=== PATIENT | female | born 1940 | race Caucasian/White ===

== ENCOUNTER → 2020-11-05 12:50 | Outpatient (BNVA) | payer MEDICARE, OTHER, SELFPAY | PROVIDERS: Family Provider Internal Medicine; PCP Internal Medicine; Visit Provider Nurse Practitioner Family | DX: N39.0 Urinary tract infection, site not specified (principal) | CPT/HCPCS: 81003 ==

== ENCOUNTER 2021-09-21 07:52 | Emergency (ER) | payer MEDICARE, OTHER, SELFPAY ==
[2021-09-21 08:32] VITALS: BP 195/85; PULSE 74; RESP 16; O2SAT 98; BMI 30.2
[2021-09-21] MEDS: hyDRALAzine 20 mg/mL INJ 1 mL 5 MG IVP (08:48)
[2021-09-21] MEDS: dexamethasone 10 mg/mL INJ IVP (08:49)
[2021-09-21] MEDS: diphenhydrAMINE 50 mg/mL SDV 1mL 25 MG IVP (08:49)
--- NOTE | 2021-09-21 08:49 | ED_ITS ---
HPI - Allergic Reaction General: Chief complaint: Allergic Reaction Stated complaint: allergic rxn Time Seen by Provider: 09/21/21 07:53 Source: patient Mode of arrival: ambulatory Limitations: no limitations History of Present Illness: HPI narrative: 81-year-old female who presents emergency room with swelling in her upper lip. She had some hives on her trunk and her legs last night. She also had a short episode of back pain for which she took a nitro its resolved and she did not had any recurrence this was several hours ago. She does take amlodipine benazepril 10/01 she takes it at night before she goes to bed she has been on it for quite some time is not previously had any difficulty with it. Not having difficulty with speech or swallowing at this time no shortness of breath. MD complaint: allergic reaction Onset (ago): hour(s) Associated symptoms: Reports lip swelling; Deny abdominal pain, difficulty breathing, dysphagia, dizziness, facial swelling, hoarseness, itching, nausea, rash, tongue swelling or vomiting Severity: moderate Treatment prior to arrival: none Previous Allergic Reaction History: none Review of Systems Const: Denies: fever(s), chills, body aches, change in appetite, fatigue or malaise ENMT: Denies: hoarseness Card: Denies: chest pain, edema, dyspnea on exertion or orthopnea Resp: Denies: dyspnea, productive cough or non-productive cough GI: Denies: abdominal pain, nausea, vomiting or dysphagia : Denies: flank pain, difficulty voiding, dysuria, urinary frequency or urinary urgency Skin/Breast: Denies: rash or pruritus Neuro: Denies: dizziness All/Imm: Denies: tongue swelling or facial swelling PFSH ED PFSH: Medical History Carotid stenosis Dyslipidemia HTN (hypertension) Myocardial infarction Recurrent UTI Surgical History History of PTCA Family History Mother CAD (coronary artery disease) Father CAD (coronary artery disease) Social History Smoking and tobacco status: never smoked Alcohol intake: never Adopted: No Caregiver/support person: No Lives independently: No Household members: spouse Marital status: Current occupational status: retired Physical Exam Const: GENERAL APPEARANCE: cooperative and comfortable ORIENTATION/CONS CIOUSNESS: Yes awake, Yes oriented to person, Yes oriented to place and Yes oriented to time HENMT: COMMON NORMALS: normocephalic, atraumatic, hearing grossly normal bilaterally, external ears normal, EAC's normal, TM's normal bilaterally, Normal nasal mucous membranes and turbinates present, moist oral mucous membranes and oropharynx normal HEAD & SCALP: normocephalic and atraumatic NOSE: Normal nasal mucous membranes and turbinates present EXTERNAL EAR: Yes external ears normal EXTERNAL AUDITORY CANAL: EAC's normal TYMPANIC MEMBRANE: TM's normal bilaterally MOUTH: tongue normal and lip abnormal (Swelling of the upper lip) THROAT: posterior oropharynx normal Eye: COMMON NORMALS: Equal, round and reactive pupils present, EOMs intact bilaterally, conjunctivae normal and no scleral icterus CONJUNCTIVA: Yes conjunctivae normal PUPIL: Yes Equal, round and reactive pupils present Neck/C-Spine: COMMON NORMALS: full ROM, no lymphadenopathy, supple and no JVD Resp: COMMON NORMALS: normal respiratory effort, No retractions, No use of accessory muscles and clear to auscultation bilaterally AUSCULTATION: clear to auscultation bilaterally Cardio: COMMON NORMALS: no JVD, regular rate, regular rhythm and No murmurs present (Cardio) RATE: regular rate RHYTHM: regular rhythm GI: COMMON NORMALS: Soft to palpation and No hepatosplenomegaly present AUSCULTATION: Yes normoactive bowel sounds PALPATION: Yes Soft to palpation, No Tenderness to palpation present (GI), No Guarding due to palpation present (GI) and Yes No hepatosplenomegaly present Extremity: COMMON NORMALS: normal to inspection, capillary refill normal, no clubbing, cyanosis or edema, no calf tenderness and no pedal edema Neuro: SENSORIUM/ORIENTATION: Yes oriented to person, Yes oriented to place and Yes oriented to time Skin: COMMON NORMALS: no rashes or lesions noted GENERAL SKIN EXAM: no rashes or lesions noted Course Vital Signs: Vital signs: Vital Signs Pulse Rate 60 09/21/21 10:44 Respiratory Rate 17 09/21/21 10:44 Blood Pressure 158/65 09/21/21 10:44 Pulse Oximetry 100 09/21/21 10:44 MDM - Allergic Reaction Medical Decision Making No acute ST changes on EKG symptoms are improving the swelling she never had any difficulties stridor or swallowing. We can discharge her home. The concern is which of her medications might cause the she is on amlodipine benazepril and both of these medications may have triggered something like this advised her to stop it completely and instead we will put her on isosorbide mononitrate and the low-dose metoprolol succinate to replace her atenolol. Follow-up with your primary care doctor within the week to reevaluate blood pressure. Medical Records I reviewed the patient's medical records. Lab Data I reviewed the patient's lab results. : 09/21/21 08:40 Laboratory Results Sodium 133 mmol/L (136-145) L 09/21/21 08:40 Potassium 4.3 mmol/L (3.5-5.1) 09/21/21 08:40 Chloride 98 mmol/L (98-107) 09/21/21 08:40 Carbon Dioxide 21 mmol/L (22-29) L 09/21/21 08:40 Anion Gap 18.3 (5-19) 09/21/21 08:40 BUN 24 mg/dL (8-23) H 09/21/21 08:40 Creatinine 0.9 mg/dL (0.5-0.9) 09/21/21 08:40 GFR Calculation Not Reportable 09/21/21 08:40 Glucose 114 mg/dL (65-115) 09/21/21 08:40 Calculated Osmolality 281 mOsm/kg (285-295) L 09/21/21 08:40 Calcium 10.0 mg/dL (8.5-10.5) 09/21/21 08:40 Troponin T Gen 5 ng/L 9 ng/L (0-10) 09/21/21 08:40 Discharge Plan Discharge Patient Disposition: Home Clinical Impression: Allergic reaction, Angioedema, HTN (hypertension) Condition: Stable Prescriptions: New isosorbide mononitrate 30 mg tablet extended release 24 hr 30 mg PO DAILY Qty: 14 0RF Toprol XL 25 mg tablet extended release 24 hr 25 mg PO DAILY Qty: 14 0RF Discontinued amlodipine-benazepril 5-20 mg capsule 1 cap PO DAILY 90 Days Qty: 90 3RF atenolol 50 mg tablet 50 mg PO DAILY 90 Days Qty: 90 3RF No Action nitroglycerin [Nitrostat] 0.4 mg tablet, sublingual 0.4 mg SUBLINGUAL Q5M PRN0RF Rx Instructions: do not exceed 3 doses per episode aspirin [Adult Low Dose Aspirin] 81 mg tablet,delayed release (DR/EC) 81 mg PO DAILY 0RF levothyroxine 112 mcg capsule 112 mcg PO DAILY 0RF sulfamethoxazole-trimethoprim 800-160 mg tablet 1 tab PO BID Qty: 28 3RF atorvastatin 80 mg tablet 40 mg PO DAILY 0RF Discharge Orders: Discharge ED (Routine); Ordered 09/21/21 Ordered By: Juan Garcia Referrals: Saul Waite DO [Primary Care Provider] - Discharge Diet: Usual diet Discharge Activity: Resume usual activity Patient Instructions: Opioid Safety Activity Restrictions/Additional Instructions: Follow-up with your primary care doctor within the week. Please make note of the medication changes that were advised today. They are listed on your discharge medication list. Coding Level of Care Code ED Transportation Economics Teacher for Kari Fwd Exam Comprehensive
[2021-09-21 08:57] VITALS: BP 181/75; PULSE 64; RESP 18; O2SAT 100
--- NOTE | 2021-09-21 09:52 | ECG_ITS ---
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 Measurements Intervals [place] Rate: 60 P: 72 SC: 220 QRS: 43 QRSD: 95 T: 88 QT: 458 QTc: 458 Interpretive Statements SINUS RHYTHM WITH FIRST DEGREE AV BLOCK No previous ECG available for comparison Electronically Signed On 09-21-2021 17:26:53 CDT by Og Lyle M.D. [id number]
[2021-09-21 10:12] LABS: Anion Gap 18.3 (5-19); Blood Urea Nitrogen 24 mg/dL (8-23); Carbon Dioxide 21 mmol/L (22-29); Chloride 98 mmol/L (98-107); Glucose 114 mg/dL (65-115); Osmolality Calculated 281 mOsm/kg (285-295); Potassium 4.3 mmol/L (3.5-5.1); Sodium 133 mmol/L (136-145); Troponin T (5th) Once 9 ng/L (0-10)
[2021-09-21 10:44] VITALS: BP 158/65; PULSE 60; RESP 17; O2SAT 100
== END 2021-09-21 10:55 | disposition home or self-care (01) ==
PROVIDERS: Emergency Provider Family Medicine; PCP Internal Medicine
DX: T78.40XA Allergy, unspecified, initial encounter (principal); T78.3XXA Angioneurotic edema, initial encounter; I10 Essential (primary) hypertension; X58.XXXA Exposure to other specified factors, initial encounter
CPT/HCPCS: 80048; 84484; 93005; 96374; 96375; 99284; J0360; J1100; J1200

== ENCOUNTER → 2021-11-08 15:10 | Outpatient (BNVA) | payer MEDICARE, OTHER, SELFPAY | PROVIDERS: PCP Internal Medicine; Visit Provider Internal Medicine | DX: I25.10 Atherosclerotic heart disease of native coronary artery without angina pectoris (principal); E78.5 Hyperlipidemia, unspecified; I10 Essential (primary) hypertension; I65.29 Occlusion and stenosis of unspecified carotid artery; Z98.61 Coronary angioplasty status | CPT/HCPCS: 99213; 99214 ==

== ENCOUNTER → 2021-11-09 12:23 | Outpatient (BNVA) | payer MEDICARE, OTHER, SELFPAY | PROVIDERS: PCP Internal Medicine; Visit Provider Urology | DX: Z87.440 Personal history of urinary (tract) infections (principal) | CPT/HCPCS: 81003; 99213 ==

== ENCOUNTER → 2022-09-05 11:09 | Outpatient (BNVA) | payer MEDICARE, OTHER, SELFPAY | PROVIDERS: PCP Internal Medicine; Visit Provider Internal Medicine Cardiovascular Disease | DX: I65.29 Occlusion and stenosis of unspecified carotid artery (principal); I10 Essential (primary) hypertension; E78.5 Hyperlipidemia, unspecified; Z98.61 Coronary angioplasty status; R53.83 Other fatigue; R06.02 Shortness of breath; I25.2 Old myocardial infarction | CPT/HCPCS: 99213 ==

== ENCOUNTER 2022-09-26 12:40 | Outpatient (CLI) | payer MEDICARE, OTHER, SELFPAY ==
--- NOTE | 2022-09-26 12:45 | USCV_ITS ---
Sonam Guerrero Age: 82 Gender: F : 1940 Exam Date: 09/26/2022 12:52 Ordering Phys: Jasmeet Jacobs MD ([email or web address]) Technologist: GILLIAN [place] [facility] [place]: fatigue BP: 152 / 71 HR: 60 Rhythm: Sinus Technical Quality: Adequate MEASUREMENTS (Male / Female) Normal Values 2D ECHO LV Diastolic Diameter PLAX 4.6 cm 4.2 - 5.9 / 3.9 - 5.3 cm LV Systolic Diameter PLAX 3.8 cm LV Chamber Size 4.8 cm IVS Diastolic Thickness 0.8 cm 0.6 - 1.0 / 0.6 - 0.9 cm IVS Systolic Thickness 1.7 cm LVPW Diastolic Thickness 0.7 cm 0.6 - 1.0 / 0.6 - 0.9 cm LVPW Systolic Thickness 1.7 cm LVOT Diameter 2.0 cm LV Ejection Fraction 2D Teich 31.1 % LV Ejection Fraction MOD 2C 64.6 % LV Ejection Fraction 2C AL 64.3 % LA Diameter 4.7 cm LA Width 4.1 cm LA Height 5.6 cm RA Width 3.0 cm RA Height 4.9 cm Aorta at Sinotubular Diameter 2.3 cm IVC Diameter 1.3 cm M-MODE Aortic Annulus Diameter 3.1 cm LA Ao Ratio MM 1.6 MV E Point Septal Separation 0.7 cm DOPPLER AV Peak Velocity 136.0 cm/s LVOT Peak Velocity 88.0 cm/s AV Area Cont Eq vti 1.9 cm squared AV Area Cont Eq pk 2.1 cm squared MV Peak Velocity 120.0 cm/s MV Area PHT 3.3 cm squared Mitral E to A Ratio 1.4 MV E' Velocity 54.0 cm/s Mitral E to MV E' Ratio 10.6 Mitral E to LV E' Lateral Ratio 9.3 Mitral E to LV E' Septal Ratio 12.3 TR Peak Velocity 185.8 cm/s TR Peak Gradient 13.8 mmHg TR Mean Velocity 132.8 cm/s TR Mean Gradient 8.0 mmHg TR Velocity Time Integral 42.6 cm TV Peak E Velocity 109.0 cm/s Right Atrial Pressure 3.0 mmHg Pulmonary Artery Systolic Pressu 16.8 mmHg PV Peak Velocity 88.0 cm/s FINDINGS Left Ventricle Left ventricle is normal size. LV systolic function is normal with EF of 55-60 %. No regional wall motion abnormalities are seen. Right Ventricle Normal in size and function Right Atrium Normal in size Left Atrium Dilated Mitral Valve Mild mitral annular calcification. Trace mitral regurgitation. Aortic Valve Structurally normal aortic valve. No significant stenosis. Tricuspid Valve Mild tricuspid regurgitation. Insufficient TR jet to calculate RVSP. Pulmonic Valve Not well-visualized. Mild pulmonoic regurgitation. Pericardium Normal Aorta Normal in size IVC Appears to be normal CONCLUSIONS LV systolic function is normal with EF 55 to 60% Left atrial dilation Trace mitral regurgitation Mild tricuspid regurgitation Mild pulmonic regurgitation No comparison studies are available. Og Lyle MD (Electronically Signed) Final Date: 05 Oct 2022 08:17 S
== END 2022-09-26 12:41 | disposition home or self-care (01) ==
LOC: RAD 12:43
PROVIDERS: PCP Internal Medicine; Visit Provider Internal Medicine Cardiovascular Disease
DX: I10 Essential (primary) hypertension (principal); I25.2 Old myocardial infarction; R53.83 Other fatigue; I07.1 Rheumatic tricuspid insufficiency; I37.1 Nonrheumatic pulmonary valve insufficiency
CPT/HCPCS: 93306; 99213

== ENCOUNTER → 2023-03-30 11:14 | Outpatient (BNVA) | payer MEDICARE, OTHER, SELFPAY | PROVIDERS: PCP Internal Medicine; Visit Provider Internal Medicine Cardiovascular Disease | DX: R06.02 Shortness of breath (principal); R53.83 Other fatigue; I10 Essential (primary) hypertension; E78.5 Hyperlipidemia, unspecified; I65.29 Occlusion and stenosis of unspecified carotid artery; Z98.61 Coronary angioplasty status; I25.2 Old myocardial infarction | CPT/HCPCS: 99213 ==

== ENCOUNTER 2023-09-07 13:03 | Emergency (ER) | payer MEDICARE, OTHER, SELFPAY ==
[2023-09-07 13:15] VITALS: BP 185/81; PULSE 70; RESP 18; TEMP 36.6; O2SAT 95; BMI 30.2
--- NOTE | 2023-09-07 13:58 | XRR_ITS ---
PROCEDURE INFORMATION: Exam: XR Chest Exam date and time: 09/07/2023 2:58 PM Age: 83 years old Clinical indication: Condition or disease; Other: HTN TECHNIQUE: Imaging protocol: Radiologic exam of the chest. Views: 1 view. COMPARISON: No relevant prior studies available. FINDINGS: Lungs: No focal consolidation. Pleural spaces: No evidence of pneumothorax. No evidence of pleural effusion. Heart/Mediastinum: Cardiomediastinal silhouette is within normal limits. Bones/joints: No evidence of acute osseous abnormality. XR/XR chest 1V portable [id number] IMPRESSION: 1. No acute cardiopulmonary abnormality.
--- NOTE | 2023-09-07 13:59 | ECG_ITS ---
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 Measurements Intervals [place] Rate: 60 P: 0 NC: 0 QRS: -6 QRSD: 88 T: 80 QT: 453 QTc: 455 Interpretive Statements Sinus rhythm occasional premature atrial contractions LOW QRS VOLTAGE IN PRECORDIAL LEADS [QRS DEFLECTION < 1.0 mV IN CHEST LEADS] NONSPECIFIC T-WAVE ABNORMALITY ABNORMAL RHYTHM ECG Compared to ECG 09/21/2021 10:23:06 Low QRS voltage now present T-wave abnormality now present Electronically Signed On 09-07-2023 15:10:28 CDT by Jasmeet Jacobs M.D. [id number]
--- NOTE | 2023-09-07 13:59 | CT_ITS ---
WS: [id number] CT HEAD NONCONTRAST HISTORY: headache, htn TECHNIQUE: Contiguous axial imaging performed through the brain in 2.5 mm imaging. Bone and soft tiss ue windows. Sagittal and coronal reformats reviewed. All CT scans at [facility] use at least one of these dose optimization techniques: automated exposure control; mA and/or kV adjustment per pa tient size (includes targeted exams where dose is matched to clinical indication); or iterative recon struction. DLP: 1046.48 mGy.cm COMPARISON: 05/22/2013 and 05/06/2015 No acute intracranial hemorrhage, midline shift or mass effect. Mild atrophy with moderate confluent low-attenuation throughout the white matter. White matter disea se has progressed since 2014. No large territory infarct. Cerebellum is negative. Ventricles: Normal size with no hydrocephalus. No inferior displacement of the cerebellar tonsils. Paranasal sinuses: As visualized are clear. Mastoid air cells: Well pneumatized. Calvarium and scalp: Skull is intact with no soft tissue edema or swelling. IMPRESSION: 1. No acute intracranial hemorrhage or edema. 2. Mild atrophy. 3. Confluent low-attenuation throughout the white matter. Probably related to advanced small vessel ischemic disease versus hypertension or diabetes. No acute infarct is identified.
[2023-09-07 14:59] LABS: Basophils % 0.4 %; Eosinophils # 0.1 10^3/uL (0.0-0.8); Lymphocytes # 1.8 10^3/uL (0.8-4.8); Lymphocytes % 23.2 %; Mean Corpuscular HGB Conc 31.9 g/dL (30-55); Mean Corpuscular Hemoglobin 27.6 pg (27-33); Mean Corpuscular Volume 86.5 fl (85-98); Mean Platelet Volume 9.8 fL (7.4-10.4); Monocytes # 0.5 10^3/uL (0.2-0.9); Monocytes % 6.6 %; Neutrophils # 5.38 10^3/uL (1.8-7.7); Neutrophils % 68.5 %; Nucleated Red Blood Cells % 0 %; Platelet Count 361 10^3/cmm (157-399); Red Blood Count 4.97 10^6/uL (3.85-5.65); Red Cell Distribution Width 14.4 % (12.1-15.1); White Blood Count 7.85 10^3/uL (3.29-11.43)
[2023-09-07 15:26] LABS: Troponin(5th) Baseline 9 ng/L (0-10)
[2023-09-07 15:55] LABS: Alanine Aminotransferase 20 U/L (0-33); Albumin Level 4.6 g/dL (3.5-5.2); Alkaline Phosphatase 138 U/L (35-105); Anion Gap 17.5 (5-19); Aspartate Amino Transferase 24 U/L (0-32); Blood Urea Nitrogen 12 mg/dL (8-23); Calcium 10.7 mg/dL (8.5-10.5); Carbon Dioxide 28 mmol/L (22-29); Chloride 96 mmol/L (98-107); Creatinine Clr Calc Pharmacy 49.3941; Globulin 3.4 g/dL (1.3-4.6); Glucose 110 mg/dL (65-115); Osmolality Calculated 284 mOsm/kg (285-295); Potassium 4.5 mmol/L (3.5-5.1); Sodium 137 mmol/L (136-145); Total Bilirubin 0.4 mg/dL (0.15-1.2)
--- NOTE | 2023-09-07 15:58 | ECG_ITS ---
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 Measurements Intervals [place] Rate: 67 P: 81 MI: 203 QRS: 28 QRSD: 101 T: 84 QT: 416 QTc: 442 Interpretive Statements SINUS RHYTHM LOW QRS VOLTAGE IN PRECORDIAL LEADS [QRS DEFLECTION < 1.0 mV IN CHEST LEADS] NONSPECIFIC T-WAVE ABNORMALITY Compared to ECG 09/07/2023 13:22:00 Atrial premature complex(es) no longer present T-wave abnormality still present Electronically Signed On 09-09-2023 19:44:43 CDT by Isatu Mcdonald M.D. [id number]
--- NOTE | 2023-09-07 16:09 | W.ED.HA ---
HPI - Headache General: Chief Complaint: Headache Stated Complaint: elevated bp Time Seen by Provider: 09/07/23 15:59 History of Present Illness: 83-year-old female with a history of hypertension and hyperlipidemia and hypothyroidism who presents to the emergency room with hypertension. She says it has been high for about 24 hours. She is taken extra of her blood pressure meds. Since it would not come down she decided to come to the emergency room. She says she had a hard time deciding whether or not to her whether to come. She has had a slight headache but no other complaints. No shortness of breath. No chest pain. No abdominal pain. No nausea or vomiting. No focal motor deficits. No slurred speech. No fevers. No cough. Review of Systems Narrative: Constitutional symptoms: Negative except as documented in HPI. Skin symptoms: Negative except as documented in HPI. Eye symptoms: Negative except as documented in HPI. ENMT symptoms: Negative except as documented in HPI. Respiratory symptoms: Negative except as documented in HPI. Cardiovascular symptoms: Negative except as documented in HPI. Gastrointestinal symptoms: Negative except as documented in HPI. Genitourinary symptoms: Negative except as documented in HPI. Musculoskeletal symptoms: Negative except as documented in HPI. Neurologic symptoms: Negative except as documented in HPI. Psychiatric symptoms: Negative except as documented in HPI. Endocrine symptoms: Negative except as documented in HPI. PFSH ED PFSH: Medical History Carotid stenosis Dyslipidemia HTN (hypertension) Myocardial infarction Recurrent UTI Surgical History History of PTCA Family History Mother CAD (coronary artery disease) Father CAD (coronary artery disease) Social History Smoking and tobacco/nicotine status: never used tobacco/nicotine Alcohol intake: never Adopted: No Caregiver/support person: No Lives independently: No Household members: spouse Marital status: Current occupational status: retired Physical Exam Narrative: EXAM NARRATIVE: General: Alert, no acute distress. Skin: Warm, dry. Head: Normocephalic, atraumatic. Neck: Supple, trachea midline. Eye: Extraocular movements are intact. Ears, nose, mouth and throat: mucosa moist. Cardiovascular: Regular, Normal peripheral perfusion. Respiratory: Lungs are clear to auscultation, respirations are non-labored, breath sounds are equal, Symmetrical chest wall expansion. Gastrointestinal: Soft, Nontender, Non distended, Normal bowel sounds. Musculoskeletal: Normal ROM, no deformity. Neurological: Alert and oriented, No focal neurological deficit observed. Psychiatric: Cooperative, appropriate mood & affect. Course Vital Signs: Vital signs: Vital Signs Temperature 97.9 F 09/07/23 13:15 Pulse Rate 70 09/07/23 13:15 Respiratory Rate 18 09/07/23 13:15 Blood Pressure 214/86 09/07/23 16:14 Pulse Oximetry 95 09/07/23 13:15 Oxygen Delivery Me thod Room Air 09/07/23 13:15 MDM - Headache Medical Decision Making Medical decision making: Differential diagnosis including but not limited to and based on the above HPI, review of systems and physical exam: Patient presents with hypertension: Essential hypertension. Stroke. acute coronary syndrome. kidney failure. congestive heart failure. anxiety Orders placed to evaluate differential diagnosis based on the above differential, HPI and physical exam these include an EKG to evaluate for any ischemic changes, chest x-ray to evaluate for cardiomegaly, and basic lab work including a troponin and a BMP look at renal function. Lab Review: Laboratory results were reviewed and interpreted by myself the emergency room physician. Lab work is unremarkable. No leukocytosis. No anemia. No renal failure. BUN and creatinine are 12 and 0.7. Cardiac markers are negative. EKG: Time 1322 rate 60 normal sinus rhythm, No ST-T changes, no ectopy, normal MD & QRS intervals, This was reviewed and interpreted by myself the ER physician at 1330 Repeat EKG: Time 1558 rate 67 normal sinus rhythm, No ST-T changes, no ectopy, normal MD & QRS intervals, This was reviewed and interpreted by myself the ER physician at 1602 Chest x-ray: No acute process. No infiltrate. No pneumothorax. No cardiomegaly. This was reviewed and interpreted by myself the ER physician. CT head: No acute intracranial process. no intracranial hemorrhage, no evidence of infarct. no evidence of acute fracture.This was reviewed and interpreted by myself the ER physician. I reviewed the patient's medical record. Reexamination: Patient remained stable. No increased work of breathing. No altered mental status. No focal motor deficits. Lab Data 09/07/23 14:53 09/07/23 14:53 Radiology Impressions Chest X-Ray 09/07/23 13:58 IMPRESSION: 1. No acute cardiopulmonary abnormality. Laboratory Results WBC 7.85 10^3/uL (3.29-11.43) 09/07/23 14:53 RBC 4.97 10^6/uL (3.85-5.65) 09/07/23 14:53 Hgb 13.70 g/dL (11.27-16.99) 09/07/23 14:53 Hct 43.0 % (36-47) 09/07/23 14:53 MCV 86.5 fl (85-98) 09/07/23 14:53 MCH 27.6 pg (27-33) 09/07/23 14:53 MCHC 31.9 g/dL (30-55) 09/07/23 14:53 RDW 14.4 % (12.1-15.1) 09/07/23 14:53 Plt Count 361 10^3/cmm (157-399) 09/07/23 14:53 MPV 9.8 fL (7.4-10.4) 09/07/23 14:53 Neut % (Auto) 68.5 % 09/07/23 14:53 Lymph % (Auto) 23.2 % 09/07/23 14:53 Chambers % (Auto) 6.6 % 09/07/23 14:53 Eos % (Auto) 1.0 % 09/07/23 14:53 Baso % (Auto) 0.4 % 09/07/23 14:53 Neut # (Auto) 5.38 10^3/uL (1.8-7.7) 09/07/23 14:53 Lymph # (Auto) 1.8 10^3/uL (0.8-4.8) 09/07/23 14:53 Chambers # (Auto) 0.5 10^3/uL (0.2-0.9) 09/07/23 14:53 Eos # (Auto) 0.1 10^3/uL (0.0-0.8) 09/07/23 14:53 Baso # (Auto) 0.0 10^3/uL (0.0-0.1) 09/07/23 14:53 Nucleated RBC % (auto) 0 % 09/07/23 14:53 Nucleated RBCs # 0.0 /100WBC 09/07/23 14:53 Sodium 137 mmol/L (136-145) 09/07/23 14:53 Potassium 4.5 mmol/L (3.5-5.1) 09/07/23 14:53 Chloride 96 mmol/L (98-107) L 09/07/23 14:53 Carbon Dioxide 28 mmol/L (22-29) 09/07/23 14:53 Anion Gap 17.5 (5-19) 09/07/23 14:53 BUN 12 mg/dL (8-23) 09/07/23 14:53 Creatinine 0.7 mg/dL (0.5-0.9) 09/07/23 14:53 GFR Calculation Not Reportable 09/07/23 14:53 Glucose 110 mg/dL (65-115) 09/07/23 14:53 Calculated Osmolality 284 mOsm/kg (285-295) L 09/07/23 14:53 Calcium 10.7 mg/dL (8.5-10.5) H 09/07/23 14:53 Total Bilirubin 0.4 mg/dL (0.15-1.2) 09/07/23 14:53 AST 24 U/L (0-32) 09/07/23 14:53 ALT 20 U/L (0-33) 09/07/23 14:53 Alkaline Phosphatase 138 U/L (35-105) H 09/07/23 14:53 Troponin T Baseline 9 ng/L (0-10) 09/07/23 14:53 Troponin T 120 Minute 8.12 ng/L (0-10) 09/07/23 16:32 Delta Troponin T -0.88 ABS# (0-10) L 09/07/23 16:32 Total Protein 8.0 g/dL (6.6-8.7) 09/07/23 14:53 Albumin 4.6 g/dL (3.5-5.2) 09/07/23 14:53 Globulin 3.4 g/dL (1.3-4.6) 09/07/23 14:53 Urine Color Yellow (Yellow) 09/07/23 16:30 Urine Appearance Cloudy (CLEAR) A 09/07/23 16:30 Urine pH 6 (5-7) 09/07/23 16:30 Ur Specific [place] 1.015 (1.005-1.030) 09/07/23 16:30 Urine Protein 1+ (Negative) H 09/07/23 16:30 Urine Glucose (UA) Norm (Normal) 09/07/23 16:30 Urine Ketones Negative (Negative) 09/07/23 16:30 Urine Blood 2+ (Negative) H 09/07/23 16:30 Urine Nitrate Negative (Negative) 09/07/23 16:30 Urine Bilirubin Neg (Negative) 09/07/23 16:30 Urine Urobilinogen Norm mg/dL (Negative) 09/07/23 16:30 Ur Leukocyte Esterase 2+ (Negative) H 09/07/23 16:30 Urine RBC 5-10 /hpf (0-2) H 09/07/23 16:30 Urine WBC >100 /hpf (0-5) H 09/07/23 16:30 Ur Squamous Epith Cells 0-4 /hpf (0-5) H 09/07/23 16:30 Ur Transition Epith Cell 0-4 /hpf 09/07/23 16:30 Ur Renal Epithelial Cell 0-4 /hpf 09/07/23 16:30 Amorphous Sediment Not Reportable 09/07/23 16:30 Urine Bacteria Trace /hpf (NONE) 09/07/23 16:30 Urine Mucus None /hpf 09/07/23 16:30 All radiology interpretation(s) finalized by discharge Other Data Assessment and plan: Urinary tract infection Accelerated hypertension = Clonidine in the emergency room -IV Rocephin - Discharged home - Discussed findings and plan with patient. Answered any questions. - All laboratory values were reviewed and interpreted personally by myself, the ER physician - All imaging was reviewed and interpreted personally by myself, the ER physician. - Evaluation and treatment of this problem were appropriate in the emergency setting Discharge Plan Discharge Patient Disposition: Home Clinical Impression: Accelerated hypertension, Urinary tract infection Condition: Stable Prescriptions: New clonidine HCl 0.1 mg tablet 0.1 mg PO Q8H PRN (Reason: hypertensive emergency) Qty: 20 0RF Rx Instructions: For Systolic >185 diastolic >100 cefdinir 300 mg capsule 300 mg PO BID 7 Days Qty: 14 0RF No Action aspirin [Adult Low Dose Aspirin] 81 mg tablet,delayed release (DR/EC) 81 mg PO DAILY levothyroxine 112 mcg capsule 112 mcg PO DAILY amlodipine-benazepril 5-20 mg capsule 1 cap PO DAILY atenolol 50 mg tablet 50 mg PO DAILY atorvastatin 80 mg tablet 80 mg PO DAILY Qty: 90 4RF nitroglycerin [Nitrostat] 0.4 mg tablet, sublingual 0.4 mg SUBLINGUAL Q5M PRN (Reason: chest pain) Qty: 25 6RF Rx Instructions: do not exceed 3 doses per episode Discharge Orders: Discharge ED (Routine); Ordered 09/07/23 Ordered By: Chioma Dobbins Referrals: Saul Waite DO [Primary Care Provider] - (You have been screened and evaluated and felt safe for discharge. Health conditions do change or evolve sometimes and as such it is important that you follow up with your Primary Doctor to be re checked, 3-5 days is a general good time frame for follow up. You are always welcome to return to the ED for re assessment if your symptoms are worsening or you have new concerns) Discharge Diet: Usual diet Discharge Activity: Resume usual activity Patient Instructions: Hypertension (ED), Urinary Tract Infection in Older Adults (ED) Coding Level of Care Code ED Manufacturers Representative for Kari Khanna
[2023-09-07 16:12] VITALS: BP 214/84
[2023-09-07] MEDS: cloNIDine 0.1 mg Tablet 0.100000000000000006 MG PO (16:12)
[2023-09-07 16:14] VITALS: BP 214/86
[2023-09-07 16:46] LABS: Add Urine Microscopic? YES; Bilirubin Urine Neg (Negative); Blood Urine 2+ (Negative); Glucose Urine UA Norm (Normal); Ketones Urine Negative (Negative); Leukocyte Esterase Urine 2+ (Negative); Nitrate Urine Negative (Negative); Protein Urine 1+ (Negative); Specific Gravity, Urine 1.015 (1.005-1.030); Urine Appearance Cloudy (CLEAR); Urine Color Yellow (Yellow); Urobilinogen Urine Norm (Negative); pH Urine 6 (5-7)
[2023-09-07 16:52] LABS: Add Urine Culture? Yes; Bacteria Urine TRACE /hpf; Renal Epithelial Cells Urine 0-4 /hpf; Squamous Epithelial Cell Urine 0-4 /hpf (0-5); Transitional Epi Cells Urine 0-4 /hpf; WBC Urine >100 /hpf (0-5)
[2023-09-07 16:59] LABS: Troponin 5 2HR 8.12 ng/L (0-10)
[2023-09-07 17:01] LABS: Troponin 5 2HR Delta -0.88 ABS# (0-10)
[2023-09-07] MEDS: cefTRIAXone 1,000 MG in water for injection-sterile 2.1 ML 1 MG IM (17:25)
[2023-09-07 17:27] VITALS: BP 164/76; PULSE 71
== END 2023-09-07 17:29 | disposition home or self-care (01) ==
PROVIDERS: Nurse Practitioner Family; Emergency Provider Emergency Medicine; PCP Internal Medicine
DX: I10 Essential (primary) hypertension (principal); N39.0 Urinary tract infection, site not specified; Z79.82 Long term (current) use of aspirin; E78.5 Hyperlipidemia, unspecified; I25.2 Old myocardial infarction; Z87.440 Personal history of urinary (tract) infections
CPT/HCPCS: 36415; 70450; 71045; 80053; 81001; 84484; 85025; 87086; 93005; 96372; 99285; J0696

== ENCOUNTER → 2023-10-30 13:33 | Outpatient (BNVA) | payer MEDICARE, OTHER, SELFPAY | PROVIDERS: PCP Internal Medicine; Visit Provider Internal Medicine Cardiovascular Disease | DX: Z01.810 Encounter for preprocedural cardiovascular examination (principal); H26.9 Unspecified cataract; Z98.61 Coronary angioplasty status; I65.29 Occlusion and stenosis of unspecified carotid artery; E78.5 Hyperlipidemia, unspecified; I10 Essential (primary) hypertension; I25.2 Old myocardial infarction | CPT/HCPCS: 99213 ==

== ENCOUNTER → 2024-07-09 10:45 | Outpatient (BNVA) | payer MEDICARE, OTHER, SELFPAY | PROVIDERS: PCP Internal Medicine; Visit Provider Internal Medicine | DX: I25.10 Atherosclerotic heart disease of native coronary artery without angina pectoris (principal); I10 Essential (primary) hypertension; E78.5 Hyperlipidemia, unspecified; I65.29 Occlusion and stenosis of unspecified carotid artery; Z98.61 Coronary angioplasty status | CPT/HCPCS: 99213 ==

== ENCOUNTER → 2025-04-08 13:50 | Outpatient (BNVA) | payer MEDICARE, OTHER, SELFPAY | PROVIDERS: PCP Family Medicine; Visit Provider Internal Medicine | DX: I25.10 Atherosclerotic heart disease of native coronary artery without angina pectoris (principal); I10 Essential (primary) hypertension; E78.5 Hyperlipidemia, unspecified; I65.29 Occlusion and stenosis of unspecified carotid artery; Z98.61 Coronary angioplasty status | CPT/HCPCS: 99214 ==

== ENCOUNTER 2025-04-18 14:34 | Outpatient (CLI) | payer MEDICARE, OTHER, SELFPAY ==
--- NOTE | 2025-04-18 15:00 | USCV_ITS ---
Sonam Guerrero Age: 85 Gender: F : 1940 Exam Date: 04/18/2025 14:45 Ordering Phys: Og Lyle M.D ([email or web address]) Technologist: Exam Location: [facility] [place] Indication: stenosis Risk Factors: Previous Vascular Surgery: Right Brachial BP: / Left Brachial BP: / Right Left Velocity (cm/s) Spectral Plaque Velocity (cm/s) Spectral Plaque Syst/Diast Broadening Syst/Diast Broadening 67.80/ 15.60 Prox CCA 73.60 / 13.40 63.90/ 12.10 Mid CCA 74.10 / 14.00 75.50/ 15.60 Distal CCA 67.20 / 12.80 58.30/ 11.70 Prox ICA 90.50 / 15.80 73.80/ 22.10 Mid ICA 88.30 / 11.50 81.90/ 23.70 Distal ICA 68.40 / 16.70 94.50 ECA 74.10 0.80 ICA/CCA 1.30 Antegrade Vertebral Antegrade 38.90/ 8.80 cm/s 43.50/ 11.50 cm/s Bi Subclavian Bi 69.80 97.50 CONCLUSIONS Right ICA stenosis <50%. Mild atheromatous plaque right carotid bulb/ICA. Left ICA stenosis <50%. Moderate atheromatous plaque left carotid bulb/ICA. Normal antegrade Doppler flow noted in the right vertebral artery. Normal antegrade Doppler flow noted in the left vertebral artery. Ehsan Luke MD (Electronically Signed) Final Date: 18 April 2025 16:24 S
== END 2025-04-18 14:35 | disposition home or self-care (01) ==
LOC: RAD 14:37
PROVIDERS: PCP Family Medicine; Visit Provider Internal Medicine
DX: I65.23 Occlusion and stenosis of bilateral carotid arteries (principal)
CPT/HCPCS: 93880